=== PATIENT | male | born 1955 | race Caucasian/White ===

== ENCOUNTER → 2018-01-23 | Outpatient (CLI) | payer OTHER ==
[~2018-01-23] MED LIST: ALEVE220 MG PO; AMOXICILLIN 50500 MG PO; AUGMENTIN 875875 MG PO; BACTRIM DS TAB1 EACH PO; COZAAR 25 MG TA25 M2 PO; COZAAR100 MG PO; DIFLUCAN100 MG PO; LEXAPRO20 MG PO; MAXZIDE-25 MG1 EACH PO; OXYCODONE HCL 55 MG PO; TRIAMTERENE-HC1 EAC3 PO
== END ==
LOC: M.RAD 09:24
DX: N63.20 Unspecified lump in the left breast, unspecified quadrant (principal); R92.8 Other abnormal and inconclusive findings on diagnostic imaging of breast

== ENCOUNTER 2021-11-27 19:29 | Emergency (ER) | payer OTHER ==
[~2021-11-27] VITALS: Ht 185.4 cm; Wt 122.5 kg
[2021-11-27 19:38] VITALS: BP 210/98
[2021-11-27] MEDS ORDERED: NORVASC5 MG PO (19:40)
[2021-11-27] MEDS ORDERED: METFORMIN HCL500 M3 PO (19:40)
[2021-11-27] MEDS ORDERED: ALLOPURINOL 10100 M3 PO (19:40)
[2021-11-27] MEDS ORDERED: VALSARTAN160 MG PO (19:41)
[2021-11-27] MEDS ORDERED: LOPRESSOR50 MG PO (19:41)
== END 2021-11-27 20:04 | disposition home or self-care (01) ==
LOC: M.ERS 19:29
DX: R04.0 Epistaxis (principal); I10 Essential (primary) hypertension; Z88.5 Allergy status to narcotic agent; Z79.899 Other long term (current) drug therapy; Z90.89 Acquired absence of other organs